=== PATIENT | female | born 1935 | race Caucasian/White ===

== ENCOUNTER 2018-05-05 17:20 | Emergency (ER) | payer MEDICARE, OTHER ==
[~2018-05-05] VITALS: Ht 165.1 cm; Wt 83.0 kg
[2018-05-05] MEDS ORDERED: methylPREDNISolone sod succ 125mg/2ml vial IV ONE (17:40)
[2018-05-05] MEDS ORDERED: levoFLOXACIN-Levaquin 750MG/D5 150 ML IV ONE (17:40)
[2018-05-05] MEDS ORDERED: ipratropium/albuterol 3ml nebule NEB ONE (17:40)
[2018-05-05 17:49] LABS: BASOPHILS % (AUTO) 0.7 % (0-1); EOSINOPHILS # (AUTO) 0.8 X10'3 (0-0.9); EOSINOPHILS % (AUTO) 11.9 % (0-6); HEMATOCRIT 40.7 % (35.0-45.0); HEMOGLOBIN 13.3 g/dl (12.0-16.0); LYMPHOCYTES # (AUTO) 1.2 X10'3 (1.1-4.8); LYMPHOCYTES % (AUTO) 18.8 % (21-51); MEAN CORPUSCULAR HGB CONC 32.7 % (33.0-36.5); MEAN CORPUSCULAR VOLUME 91.5 FL (78-98); MONOCYTES # (AUTO) 0.8 X10'3 (0-0.9); MONOCYTES % (AUTO) 13.3 % (2-12); NEUTROPHILS # (AUTO) 3.6 X10'3 (1.8-7.7); NEUTROPHILS % (AUTO) 55.3 % (42-75); PLATELET COUNT 395 X10'3 (140-440); RED BLOOD COUNT 4.44 X10'6 (4.20-5.60); RED CELL DISTRIBUTION WIDTH 12.7 % (11.5-14.5); WHITE BLOOD COUNT 6.4 X10'3 (4.5-11.0)
[2018-05-05 18:03] LABS: PARTIAL THROMBOPLASTIN TIME 27 SECONDS (22-32); PROTHROMBIN TIME 9.9 SECONDS (9.0-12.0)
[2018-05-05 18:06] LABS: ALANINE AMINOTRANSFERASE 25 U/L (12-78); ALBUMIN 3.6 G/DL (3.4-5.0); ALBUMIN/GLOBULIN RATIO 0.9 (1.1-1.5); ALKALINE PHOSPHATASE 117 IU/L (46-116); ANION GAP 10 (8-16); ASPARTATE AMINO TRANSFERASE 19 U/L (10-37); BILIRUBIN,TOTAL 0.3 MG/DL (0.1-1.0); BLOOD UREA NITROGEN 11 MG/DL (7-18); BUN/CREATININE RATIO 11.1 (6.6-38.0); CALCIUM 8.9 MG/DL (8.5-10.1); CHLORIDE 103 MMOL/L (99-107); CREATININE 0.99 MG/DL (0.40-0.90); GLUCOSE 119 MG/DL (70-104); POTASSIUM 3.9 MMOL/L (3.5-5.1); SODIUM 140 MMOL/L (135-145); TOTAL CARBON DIOXIDE 27.1 MMOL/L (24-32); TOTAL PROTEIN 7.5 G/DL (6.4-8.2); eGFR 54 ML/MIN
[2018-05-05] MEDS ORDERED: benzonatate 100mg capsule PO ONE (19:10)
[2018-05-05] MEDS ORDERED: AZIT-63 PO (19:22)
[2018-05-05] MEDS ORDERED: PRED20TA PO (19:22)
[2018-05-05 19:56] VITALS: BP 158/76
== END 2018-05-05 19:55 | disposition home or self-care (01) ==
LOC: ER 17:21
DX: J40 Bronchitis, not specified as acute or chronic (principal); Z88.2 Allergy status to sulfonamides; Z79.2 Long term (current) use of antibiotics; Z79.899 Other long term (current) drug therapy
CPT/HCPCS: 36415; 71045; 80053; 83605; 84145; 84484; 85025; 85610; 85730; 87040; 87502; 87503; 93005; 94640; 94760; 96365; 96375; 99284; J1956; J2930

== ENCOUNTER 2019-05-06 11:08 | Emergency (ER) | payer MEDICARE, OTHER ==
[~2019-05-06] VITALS: Ht 165.1 cm; Wt 84.0 kg
[2019-05-06 11:56] LABS: BASOPHILS % (AUTO) 0.7 % (0-1); EOSINOPHILS % (AUTO) 0.1 % (0-6); HEMATOCRIT 39.9 % (35.0-45.0); HEMOGLOBIN 13.6 g/dl (12.0-16.0); LYMPHOCYTES % (AUTO) 14.6 % (21-51); MEAN CORPUSCULAR HEMOGLOBIN 31.6 PG (27.0-31.0); MEAN CORPUSCULAR HGB CONC 34.2 g/dL (33.0-36.5); MEAN CORPUSCULAR VOLUME 92.6 FL (78-98); MEAN PLATELET VOLUME 6.8 FL (7.4-10.4); MONOCYTES # (AUTO) 0.7 X10'3 (0-0.9); MONOCYTES % (AUTO) 9.6 % (2-12); NEUTROPHILS # (AUTO) 5.3 X10'3 (1.8-7.7); PLATELET COUNT 269 X10'3 (140-440); RED BLOOD COUNT 4.31 X10'6 (4.20-5.60); RED CELL DISTRIBUTION WIDTH 13.3 % (11.5-14.5)
[2019-05-06 12:10] LABS: ALANINE AMINOTRANSFERASE 29 U/L (12-78); ALBUMIN 3.4 G/DL (3.4-5.0); ALKALINE PHOSPHATASE 72 IU/L (46-116); ANION GAP 8 (8-16); ASPARTATE AMINO TRANSFERASE 20 U/L (10-37); BILIRUBIN,TOTAL 0.2 MG/DL (0.1-1.0); BLOOD UREA NITROGEN 10 MG/DL (7-18); CALCIUM 8.6 MG/DL (8.5-10.1); CHLORIDE 107 MMOL/L (99-107); GLUCOSE 161 MG/DL (70-104); POTASSIUM 4.1 MMOL/L (3.5-5.1); SODIUM 141 MMOL/L (135-145); TOTAL CARBON DIOXIDE 25.7 MMOL/L (24-32); TOTAL PROTEIN 6.9 G/DL (6.4-8.2); eGFR 53 ML/MIN
[2019-05-06] MEDS ORDERED: methylPREDNISolone sod succ 125mg/2ml vial IM ONE (12:15)
[2019-05-06] MEDS ORDERED: ipratropium/albuterol 3ml nebule NEB ONE (12:15)
[2019-05-06] MEDS ORDERED: PRED20TA PO (12:42)
[2019-05-06] MEDS ORDERED: AZIT250T83 PO (12:42)
[2019-05-06 12:54] VITALS: BP 153/55
== END 2019-05-06 12:56 | disposition home or self-care (01) ==
LOC: ER 11:09
DX: J45.909 Unspecified asthma, uncomplicated (principal); Z88.2 Allergy status to sulfonamides; Z79.899 Other long term (current) drug therapy
CPT/HCPCS: 36415; 71046; 80053; 85025; 94640; 96372; 99284; J2930; 94760

== ENCOUNTER 2019-06-07 21:41 | Emergency (ER) | payer MEDICARE, OTHER ==
[~2019-06-07] VITALS: Ht 165.1 cm; Wt 84.0 kg
[2019-06-07] MEDS ORDERED: morphine 4 MG/ML inj SYRINge IM ONE (22:30)
[2019-06-07] MEDS ORDERED: ondansetron 4mg rapidly disintigrating tab PO ONE (22:30)
[2019-06-07] MEDS ORDERED: LORazepam 1 MG tablet PO ONE (22:30)
[2019-06-07] MEDS ORDERED: propofol 1000mg/100ml bottle 100 ML IV ONE (23:20)
--- NOTE | 2019-06-07 23:37 | NUR ---
PT ON ETCO2 MONITORING. AOX4, CONSENT SIGNED BY PATIENT. WAITING ON SUPERVISOR CLAM BED FOR MODERATE SEDATION PROCEDURE.
--- NOTE | 2019-06-08 00:32 | NUR ---
Pt placed on NRB for supplemental O2 support due to O2 saturation.
--- NOTE | 2019-06-08 00:55 | NUR ---
0029: MED START 0030: PROCEDURE START 0031: PT DESATTED TO 87% ON 2L O2 NC, INCREASED TO 5L O2 NC 0032: PT PLACED ON 15L NRB DUE TO 82% O2 SATURATION; PT HYPOTENSIVE 87/45. TKO FLUIDS INCREASED. 0037: PROCEDURE END. POST-RECOVERY ASSESSMENT INITIATED. TOTAL 80MG IV PROPOFOL ADMINISTERED BY DR. ALLEN VIA 20G LEFT FOREARM.
[2019-06-08] MEDS ORDERED: ONDA4TAB6 PO (00:57)
[2019-06-08] MEDS ORDERED: HYDR-4383 PO (00:57)
[2019-06-08 01:18] VITALS: BP 150/65
== END 2019-06-08 01:40 | disposition home or self-care (01) ==
LOC: ER 21:41
DX: S82.892A Other fracture of left lower leg, initial encounter for closed fracture (principal); J45.909 Unspecified asthma, uncomplicated; Z88.2 Allergy status to sulfonamides; Z79.899 Other long term (current) drug therapy; W01.0XXA Fall on same level from slipping, tripping and stumbling without subsequent striking against object, initial encounter; Y93.89 Activity, other specified; Y92.002 Bathroom of unspecified non-institutional (private) residence as the place of occurrence of the external cause; Y99.8 Other external cause status
CPT/HCPCS: 27762; 73600; 73610; 96372; 99152; 99285; J2270; J2704; 99284

== ENCOUNTER 2022-01-04 14:08 | Emergency (ER) | payer MEDICARE, OTHER ==
[~2022-01-04] VITALS: Ht 165.1 cm; Wt 80.5 kg
[~2022-01-04 14:08] MED LIST: HYDR-4383 PO; ONDA4TAB6 PO
[2022-01-04 14:54] VITALS: BP 123/45
[2022-01-04] MEDS ORDERED: dexamethasone sod phosphate 10mg/ml inj IM STA (15:48)
== END 2022-01-04 16:58 | disposition home or self-care (01) ==
LOC: ER 14:08
DX: M54.41 Lumbago with sciatica, right side (principal); G89.29 Other chronic pain; J45.909 Unspecified asthma, uncomplicated; M54.9 Dorsalgia, unspecified; Z88.2 Allergy status to sulfonamides; Z79.899 Other long term (current) drug therapy
CPT/HCPCS: 96372; 99283; J1100

== ENCOUNTER 2022-10-23 11:09 | Emergency (ER) | payer MEDICARE, OTHER ==
[~2022-10-23] VITALS: Ht 165.1 cm; Wt 85.0 kg
[2022-10-23] MEDS ORDERED: LORazepam 1 MG tablet PO ONE (11:15)
[2022-10-23] MEDS ORDERED: methylPREDNISolone sod succ 125mg/2ml vial IV ONE (11:15)
[2022-10-23] MEDS ORDERED: ipratropium/albuterol 3ml nebule NEB ONE (11:15)
[2022-10-23] MEDS ORDERED: magnesium 2GM in 50ml NS 50 ML IV ONE (11:15)
[2022-10-23 11:43] LABS: BASOPHILS # (AUTO) 0.1 X10'3 (0-0.2); BASOPHILS % (AUTO) 0.4 % (0-1); EOSINOPHILS % (AUTO) 0.1 % (0-6); HEMATOCRIT 39.5 % (35.0-45.0); HEMOGLOBIN 13.2 g/dl (12.0-16.0); LYMPHOCYTES # (AUTO) 1.2 X10'3 (1.1-4.8); LYMPHOCYTES % (AUTO) 6.9 % (21-51); MEAN CORPUSCULAR HEMOGLOBIN 30.6 PG (27.0-31.0); MEAN CORPUSCULAR HGB CONC 33.4 g/dL (33.0-36.5); MEAN CORPUSCULAR VOLUME 91.6 FL (78-98); MEAN PLATELET VOLUME 6.3 FL (7.4-10.4); MONOCYTES # (AUTO) 0.8 X10'3 (0-0.9); MONOCYTES % (AUTO) 4.8 % (2-12); NEUTROPHILS # (AUTO) 15.3 X10'3 (1.8-7.7); NEUTROPHILS % (AUTO) 87.8 % (42-75); PLATELET COUNT 446 X10'3 (140-440); RED BLOOD COUNT 4.31 X10'6 (4.20-5.60); RED CELL DISTRIBUTION WIDTH 12.7 % (11.5-14.5); WHITE BLOOD COUNT 17.5 X10'3 (4.5-11.0)
[2022-10-23] MEDS ORDERED: CefTRIAXone 2gm/D5W 50ml BAG 50 ML IV ONE (11:55)
[2022-10-23] MEDS ORDERED: albuterol 2.5 MG/3 ML nebule NEB ONE (11:55)
[2022-10-23 11:57] LABS: ALANINE AMINOTRANSFERASE 26 U/L (12-78); ALBUMIN 3.2 G/DL (3.4-5.0); ALBUMIN/GLOBULIN RATIO 0.9 (1.1-1.5); ALKALINE PHOSPHATASE 65 IU/L (46-116); ANION GAP 13 (8-16); ASPARTATE AMINO TRANSFERASE 23 U/L (10-37); BILIRUBIN,TOTAL 0.4 MG/DL (0.1-1.0); BLOOD UREA NITROGEN 19 MG/DL (7-18); BUN/CREATININE RATIO 17.1 (10.0-20.0); CALCIUM 9.3 MG/DL (8.5-10.1); CHLORIDE 97 MMOL/L (99-107); CREATININE 1.11 MG/DL (0.40-0.90); GLUCOSE 231 MG/DL (70-104); SODIUM 136 MMOL/L (135-145); TOTAL CARBON DIOXIDE 25.8 MMOL/L (24-32); TOTAL PROTEIN 6.8 G/DL (6.4-8.2); eGFR 47 ML/MIN
[2022-10-23 12:05] LABS: MAGNESIUM 1.7 MG/DL (1.5-2.4)
[2022-10-23] MEDS ORDERED: potassium Cl 20 mEq SR tablet PO ONE (12:10)
--- NOTE | 2022-10-23 12:40 | NUR ---
Per Bree - Run Mag faster than 25ml/hr, give over 30 minutes.
[2022-10-23] MEDS ORDERED: DOXY100C43 PO (13:17)
[2022-10-23] MEDS ORDERED: CEPH250T PO (13:17)
[2022-10-23 13:38] VITALS: BP 127/65
== END 2022-10-23 13:46 | disposition home or self-care (01) ==
LOC: ER 11:10
DX: J45.901 Unspecified asthma with (acute) exacerbation (principal); J02.9 Acute pharyngitis, unspecified; G89.29 Other chronic pain; Z88.2 Allergy status to sulfonamides; Z79.899 Other long term (current) drug therapy
CPT/HCPCS: 36415; 71045; 80053; 83735; 83880; 84145; 84484; 85025; 93005; 94640; 96365; 96368; 96375; 99285; J0696; J2930; J3475; 94760

== ENCOUNTER 2023-10-04 09:41 | Emergency (ER) | payer MEDICARE, OTHER ==
[~2023-10-04] VITALS: Ht 167.6 cm; Wt 80.5 kg
[2023-10-04 09:48] VITALS: BP 147/88; PULSE 100; RESP 16; TEMP 98.7; O2SAT 96
[2023-10-04] MEDS: methylPREDNISolone sod succ 125mg/2ml vial IM ONE (10:59)
== END 2023-10-04 12:05 | disposition home or self-care (01) ==
LOC: ER 09:42
DX: M54.32 Sciatica, left side (principal); J45.909 Unspecified asthma, uncomplicated; Z88.2 Allergy status to sulfonamides; Z79.899 Other long term (current) drug therapy
CPT/HCPCS: 96372; 99283; J2919

== ENCOUNTER 2024-09-14 09:07 | Outpatient (CLI) | payer MEDICARE, OTHER ==
[2024-09-14 10:00] LABS: ALANINE AMINOTRANSFERASE 18 U/L (12-78); ALBUMIN 3.1 G/DL (3.4-5.0); ALBUMIN/GLOBULIN RATIO 0.8 (1.1-1.5); ALKALINE PHOSPHATASE 81 IU/L (46-116); ANION GAP 8 (8-16); ASPARTATE AMINO TRANSFERASE 20 U/L (10-37); BILIRUBIN,TOTAL 0.3 MG/DL (0.1-1.0); BLOOD UREA NITROGEN 18 MG/DL (7-18); BUN/CREATININE RATIO 20.5 (10.0-20.0); CALCIUM 9.2 MG/DL (8.5-10.1); CHLORIDE 100 MMOL/L (99-107); CREATININE 0.88 MG/DL (0.40-0.90); GLUCOSE 174 MG/DL (70-104); SODIUM 134 MMOL/L (135-145); TOTAL CARBON DIOXIDE 26.3 MMOL/L (24-32); TOTAL PROTEIN 7.1 G/DL (6.4-8.2); eGFR 61 ML/MIN
--- NOTE | 2024-09-14 11:03 | RADIOLOGY REPORT ---
PROCEDURE: MR MRI HEAD INDICATION: DEMENTIA W BEHAVIORAL DISTURBANCE EXAM DATE: 09/14/2024 10:22 AM COMPARISON: None TECHNIQUE: MRI of the brain without intravenous contrast. FINDINGS: Diffusion weighted images of the brain demonstrate no evidence of acute infarction. There is no evidence of acute intracranial hemorrhage, extra-axial collection, mass effect, midline s hift, herniation or hydrocephalus. [id number] cerebral atrophy. Moderate changes of chronic microvascular ischemic disease. There are no definite signal abnormalities on the susceptibility weighted sequences. The major vascular flow voids are present. Mild opacification of right mastoid air cells. The surrounding soft tissues and osseous structures a re unremarkable. IMPRESSION: 1. No evidence of acute infarction, intracranial hemorrhage, mass effect or hydrocephalus. Mild-to-mo derate cerebral atrophy. Moderate changes of chronic microvascular ischemic disease. Right mastoid e ffusion. HS:Y
== END 2024-09-14 23:59 | disposition home or self-care (01) ==
LOC: MRI 09:07
PROVIDERS: ATTEND Nurse Practitioner Family
DX: I67.82 Cerebral ischemia (principal); G31.9 Degenerative disease of nervous system, unspecified; F03.918 Unspecified dementia, unspecified severity, with other behavioral disturbance
CPT/HCPCS: 36415; 70551; 80053